=== PATIENT | male | born 1980 | race African-American/Black ===

== ENCOUNTER 2017-04-25 12:50 | Emergency (ER) | payer BC ==
[~2017-04-25] VITALS: Ht 172.7 cm; Wt 85.5 kg
[2017-04-25 13:31] LABS: MCH 26.7 PG (29.0-34.0); MCHC 32.7 G/DL (30.0-36.0); MCV 81.8 FL (86-99); RBC DIS.WIDTH-SD 38.7 % (39-53)
[2017-04-25 13:41] LABS: CHLORIDE 108 mEq/L (99-109); POTASSIUM 3.7 mEq/L (3.7-5.4); SODIUM 143 mEq/L (136-147)
[2017-04-25 13:43] LABS: GLUCOSE 86 mg/dL (70-99)
[2017-04-25 13:44] LABS: ANION GAP 10 MEQ/L (2-14)
[2017-04-25 13:48] LABS: UREA NITROGEN (BUN) 11 mg/dL (9-23)
[2017-04-25 13:50] LABS: GFR ESTIMATE (CALCULATED) > 59 mL/min/
[2017-04-25 14:22] LABS: MEAN PLAT.VOLUME 13.1 uM^3 (9.0-12.4); PLAT.SUFFICIENCY DECREASED; PLATELET COUNT 131 K/uL (156-360)
[2017-04-25 15:45] VITALS: BP 131/85
== END 2017-04-25 16:00 | disposition home or self-care (01) ==
LOC: EME 12:50 → EDBD 12:50 → EME 16:00
PROVIDERS: Emergency Medicine
DX: E86.0 Dehydration (principal); R51 Headache
CPT/HCPCS: 70450; 80048; 85027; 93005; 99281; 99285; J2250; J7030